=== PATIENT | female | born 1985 | race Caucasian/White ===

== ENCOUNTER 2017-06-28 22:00 | Emergency (ER) | payer OTHER, MEDICAID ==
[~2017-06-28] VITALS: Ht 165.1 cm; Wt 115.0 kg
[2017-06-28 22:03] VITALS: BP 131/79; PULSE 82; RESP 15; TEMP 98.9; O2SAT 97
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
[2017-06-28] MEDS ORDERED: DIPHTH/TETANUS/ACEL PERTUSSIS (BOOSTER) 0.5 ML VIAL/PFS IM ONE (23:15)
[2017-06-28] MEDS ORDERED: CEPHALEXIN MONOHYDRATE 500 MG CAP PO ONE (23:15)
[2017-06-28] MEDS ORDERED: SODIUM CHLORIDE 0.9% FLUSH 10 ML FLUSH IVF PRN (23:15)
[2017-06-28] MEDS ORDERED: ACETAMINOPHEN/HYDROcodone 325 MG/5 MG TAB PO ONE (23:15)
[2017-06-28 23:37] LABS: BILIRUBIN, URINE NEG (NEG); BLOOD, URINE NEG (NEG); GLUCOSE,URINE NEG (NEG); KETONE, URINE NEG (NEG); NITRITE,URINE NEG (NEG); SQUAMOUS EPITHELIAL CELL URINE 2 /hpf (0-5); URINE COLOR LIGHT-YELLOW (YELLW/STRAW); URINE LEUKOCYTE ESTERASE NEG (NEG)
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
[2017-06-29] MEDS ORDERED: CEPH-460 PO (00:07)
[2017-06-29] MEDS ORDERED: BACI500O9 TOPICAL (00:07)
[2017-06-29] MEDS ORDERED: CYCL5TAB PO (00:07)
[2017-06-29] MEDS ORDERED: IBUP-232 PO (00:07)
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
[2017-06-29 01:06] VITALS: BP 115/67; PULSE 77; RESP 18; O2SAT 97
== END 2017-06-29 01:18 | disposition home or self-care (01) ==
LOC: NEPC 22:00
DX: S06.0X1A Concussion with loss of consciousness of 30 minutes or less, initial encounter (principal); S01.311A Laceration without foreign body of right ear, initial encounter; V49.50XA Passenger injured in collision with unspecified motor vehicles in traffic accident, initial encounter; Z23 Encounter for immunization
CPT/HCPCS: 12011; 70450; 80307; 81001; 90471; 90715